=== PATIENT | male | born 1950 | race Caucasian/White ===

== ENCOUNTER 2021-05-21 05:37 | Inpatient (IN) ==
[2021-05-21] MEDS ORDERED: 0.9 % Sodium Chloride 1,000 ML IV ONE (05:50)
[2021-05-21 06:33] LABS: Basophils % 0.3 %; Hematocrit 45.3 % (37.5-50.1); Immature Granulocytes % 1.4 % (0-4); Lymphocytes # 1.2 K/mcL (0.6-4.6); Lymphocytes % 10.5 %; Mean Corpuscular HGB Conc 35.3 g/dL (31.6-35.5); Mean Corpuscular Hemoglobin 28.9 pg (28.0-33.3); Mean Corpuscular Volume 81.9 fL (83.0-100.0); Mean Platelet Volume 11.3 fL (9.4-12.4); Monocytes # 1.1 K/mcL (0.0-1.3); Monocytes % 9.5 %; Neutrophils # 9.1 K/mcL (1.6-8.9); Platelet Count 321 K/mcL (140-400); Red Blood Count 5.53 M/mcL (4.19-5.50); Red Cell Distribution Width 12.3 % (11.5-14.5); Segmented Neutrophils % 78.3 %; White Blood Count 11.6 K/mcL (4.3-11.1)
[2021-05-21 06:42] LABS: INR 1.5; Prothrombin Time 16.7 Seconds (9.4-12.1)
[2021-05-21 06:48] LABS: Alanine Aminotransferase 15 Units/L (7-52); Albumin 3.3 g/dL (3.5-5.7); Albumin/Globulin Ratio 0.9 (1.1-2.2); Alkaline Phosphatase 50 Units/L (34-104); Aspartate Amino Transferase 24 Units/L (13-39); BUN/Creatinine Ratio 23 (6-26); Bilirubin,Total 1.2 mg/dL (0.3-1.0); Blood Urea Nitrogen 25 mg/dL (8-23); Calcium 8.7 mg/dL (8.6-10.3); Carbon Dioxide 28 mEq/L (23-29); Chloride 89 mEq/L (98-107); Globulin 3.7 g/dL (2.4-3.5); Glucose 272 mg/dL (70-105); Magnesium 1.9 mg/dL (1.6-2.6); Osmolality,Calculated 282 (280-300); Phosphorous 2.7 mg/dL (2.7-4.5); Potassium 3.2 mEq/L (3.5-5.1); Sodium 129 mEq/L (136-145); eGFR For African Americans > 60 (> 60); eGFR For Non-African Americans > 60 (> 60)
[2021-05-21 06:49] LABS: Troponin I < 0.03 ng/mL (< 0.04)
[2021-05-21 06:49] LABS: ABG Base Excess 1 mEq/L (-2 to 3); ABG HCO3 24 mEq/L (21-27); ABG Oxygen Saturation 88 % (95-98); ABG PCO2 31 mmHg (35-45); ABG PH 7.48 pH Units (7.32-7.45); ABG PO2 49 mmHg (85-104); ABG TCO2 24 mEq/L (20-26)
[2021-05-21] MEDS ORDERED: cefTRIAXone 1,000 MG in 0.9 % Sodium Chloride Mini Bag 100 ML IVPB ONE (06:52)
[2021-05-21] MEDS ORDERED: 0.9 % Sodium Chloride 1,000 ML IVC SCH (07:30)
[2021-05-21] MEDS ORDERED: Azithromycin 500 MG in 0.9 % Sodium Chloride 250 ML IVPB ONE (08:00)
[2021-05-21 09:14] LABS: Bilirubin,Urine Negative (Negative); Blood,Urine Negative (Negative); Clarity,Urine Clear (Clear); Color,Urine Yellow (Yellow); Glucose,Urine (UA) 250 mg/dL (Normal); Ketones,Urine 15 mg/dL (Negative); Leukocyte Esterase,Urine Negative (Negative); Nitrite,Urine Negative (Negative); Protein,Urine 30 mg/dL (Neg-Trace); Specific Gravity,Urine 1.025 (1.010-1.025); Urobilinogen,Urine Normal (Normal)
[2021-05-21 09:20] LABS: Hyaline Casts,Urine Few per lpf (None Seen); WBC,Urine 0-3 per hpf (0-3)
[2021-05-21] MEDS ORDERED: Naloxone 0.4 MG/ML INJ IVP PRN (10:08)
[2021-05-21] MEDS ORDERED: Ondansetron 4 MG/2 ML VIAL IVP PRN (10:08)
[2021-05-21] MEDS ORDERED: Acetaminophen 325 MG TABLET PO PRN (10:08)
[2021-05-21] MEDS ORDERED: D5% in Water 1,000 ML IVC PRN (10:11)
[2021-05-21] MEDS ORDERED: Dextrose Gel 15 GM/37.5 ML TUBE PO PRN ×2 (10:11)
[2021-05-21] MEDS ORDERED: *HR* Dextrose 50 % in Water (Syg) 50 ML SYRINGE IVP PRN (10:11)
[2021-05-21] MEDS ORDERED: Remdesivir 200 MG in 0.9 % Sodium Chloride 100 ML IVPB ONE (10:13)
[2021-05-21] MEDS: Apixaban 5 MG TABLET PO SCH ×2 (12:53→23:50)
[2021-05-21] MEDS: DilTIAZem CD (24hr) 120 MG CAP.ER.24H PO SCH (12:53)
[2021-05-21] MEDS ORDERED: Haloperidol Lactate 5 MG/ML VIAL IVP ONE (13:52)
[2021-05-21] MEDS: Insulin LISPRO 300 UNITS/3 ML VIAL SUBQ SCH ×3 (14:24→23:50)
[2021-05-21] MEDS: 0.9 % Sodium Chloride 1,000 ML IVC SCH (15:04)
[2021-05-21] MEDS: *HR* LORazepam 2 MG/ML VIAL IVP PRN (16:46)
[2021-05-21] MEDS: Famotidine 20 MG/2 ML VIAL IVP SCH (16:46)
[2021-05-22] MEDS ORDERED: *HR* Enoxaparin 40 MG/0.4 ML SYRINGE SQ SCH (06:00)
[2021-05-22 07:54] LABS: Hematocrit 44.8 % (37.5-50.1); Hemoglobin 15.9 g/dL (12.9-16.9); Mean Corpuscular HGB Conc 35.5 g/dL (31.6-35.5); Mean Corpuscular Hemoglobin 29.3 pg (28.0-33.3); Mean Corpuscular Volume 82.5 fL (83.0-100.0); Mean Platelet Volume 10.9 fL (9.4-12.4); Platelet Count 346 K/mcL (140-400); Red Blood Count 5.43 M/mcL (4.19-5.50); Red Cell Distribution Width 12.8 % (11.5-14.5); White Blood Count 9.8 K/mcL (4.3-11.1)
[2021-05-22 08:06] LABS: Albumin 3.1 g/dL (3.5-5.7); Albumin/Globulin Ratio 0.8 (1.1-2.2); Bilirubin,Direct 0.2 mg/dL (0.0-0.2); Bilirubin,Indirect 0.5 mg/dL (0.0-1.0); Bilirubin,Total 0.7 mg/dL (0.3-1.0); Globulin 3.7 g/dL (2.4-3.5); Total Protein 6.8 g/dL (6.4-8.9)
[2021-05-22 08:07] LABS: Alanine Aminotransferase 15 Units/L (7-52); Albumin 3.1 g/dL (3.5-5.7); Albumin/Globulin Ratio 0.9 (1.1-2.2); Alkaline Phosphatase 45 Units/L (34-104); Aspartate Amino Transferase 17 Units/L (13-39); BUN/Creatinine Ratio 27 (6-26); Bilirubin,Total 0.7 mg/dL (0.3-1.0); Blood Urea Nitrogen 25 mg/dL (8-23); Calcium 8.9 mg/dL (8.6-10.3); Carbon Dioxide 27 mEq/L (23-29); Chloride 99 mEq/L (98-107); Globulin 3.6 g/dL (2.4-3.5); Glucose 302 mg/dL (70-105); Magnesium 2.2 mg/dL (1.6-2.6); Osmolality,Calculated 298 (280-300); Potassium 3.4 mEq/L (3.5-5.1); Sodium 136 mEq/L (136-145); Total Protein 6.7 g/dL (6.4-8.9); eGFR For African Americans > 60 (> 60); eGFR For Non-African Americans > 60 (> 60)
[2021-05-22] MEDS ORDERED: Levalbuterol Neb 1.25 MG/3 ML IH SCH (09:00)
[2021-05-22] MEDS: Levalbuterol 1 PUFF INHALER IH SCH ×4 (09:08→20:36)
[2021-05-22] MEDS: Ipratropium 1 PUFF INHALER IH SCH ×4 (09:08→20:36)
[2021-05-22] MEDS ORDERED: Potassium Chloride Elixir 20 MEQ/15 ML UDC PO ONE (09:37)
[2021-05-22] MEDS ORDERED: Furosemide 20 MG TABLET PO PRN (09:42)
[2021-05-22] MEDS ORDERED: Benzonatate 100 MG CAPSULE PO PRN (09:48)
[2021-05-22] MEDS: Apixaban 5 MG TABLET PO SCH ×2 (09:56→22:36)
[2021-05-22] MEDS: DilTIAZem CD (24hr) 120 MG CAP.ER.24H PO SCH (09:56)
[2021-05-22] MEDS: Dexamethasone Sodium Phos/PF 10 MG/ML VIAL IVP SCH (09:56)
[2021-05-22] MEDS: Famotidine 20 MG/2 ML VIAL IVP SCH ×2 (09:58→17:32)
[2021-05-22] MEDS: Insulin LISPRO 300 UNITS/3 ML VIAL SUBQ SCH ×4 (09:59→22:37)
[2021-05-22] MEDS: Furosemide 20 MG/2 ML VIAL IVP SCH (10:00)
[2021-05-22] MEDS: 0.9 % Sodium Chloride 1,000 ML IVC SCH (10:09)
[2021-05-22 10:45] LABS: Lymphocytes # 1.4 K/mcL (0.6-4.6); Monocytes # 0.8 K/mcL (0.0-1.3); Neutrophils # 7.5 K/mcL (1.6-8.9); Reactive Lymphocytes Present (Not Present)
[2021-05-22 10:47] LABS: Platelet Estimate Normal (Normal)
[2021-05-22] MEDS ORDERED: Azithromycin 500 MG in 0.9 % Sodium Chloride 250 ML IVPB SCH (11:00)
[2021-05-22] MEDS: Remdesivir 100 MG in 0.9 % Sodium Chloride 100 ML IVPB SCH (11:43)
[2021-05-23] MEDS: Levalbuterol 1 PUFF INHALER IH SCH ×6 (00:09→20:56)
[2021-05-23] MEDS: Ipratropium 1 PUFF INHALER IH SCH ×6 (00:09→20:55)
[2021-05-23] MEDS: Famotidine 20 MG/2 ML VIAL IVP SCH ×2 (05:37→19:07)
[2021-05-23] MEDS: *HR* LORazepam 2 MG/ML VIAL IVP PRN (05:37)
[2021-05-23 07:16] LABS: Basophils # 0.1 K/mcL (0.0-0.2); Basophils % 0.5 %; Hemoglobin 15.4 g/dL (12.9-16.9); Immature Granulocytes % 1.6 % (0-4); Lymphocytes # 1.2 K/mcL (0.6-4.6); Lymphocytes % 8.3 %; Mean Corpuscular Hemoglobin 28.9 pg (28.0-33.3); Mean Corpuscular Volume 82.7 fL (83.0-100.0); Mean Platelet Volume 10.9 fL (9.4-12.4); Monocytes # 1.1 K/mcL (0.0-1.3); Monocytes % 7.5 %; Platelet Count 398 K/mcL (140-400); Red Blood Count 5.32 M/mcL (4.19-5.50); Segmented Neutrophils % 82.1 %; White Blood Count 14.5 K/mcL (4.3-11.1)
[2021-05-23 07:19] LABS: Neutrophils # 11.9 K/mcL (1.6-8.9)
[2021-05-23 07:32] LABS: Albumin 3.1 g/dL (3.5-5.7); Albumin/Globulin Ratio 0.9 (1.1-2.2); Bilirubin,Direct 0.2 mg/dL (0.0-0.2); Bilirubin,Indirect 0.6 mg/dL (0.0-1.0); Bilirubin,Total 0.8 mg/dL (0.3-1.0); Globulin 3.5 g/dL (2.4-3.5); Total Protein 6.6 g/dL (6.4-8.9)
[2021-05-23] MEDS ORDERED: *HR* Dextrose 50 % in Water (Syg) 50 ML SYRINGE IVP PRN (09:05)
[2021-05-23] MEDS ORDERED: D5% in Water 1,000 ML IVC PRN (09:05)
[2021-05-23] MEDS ORDERED: Dextrose Gel 15 GM/37.5 ML TUBE PO PRN ×2 (09:05)
[2021-05-23 09:21] LABS: BUN/Creatinine Ratio 30 (6-26); Blood Urea Nitrogen 31 mg/dL (8-23); Calcium 8.9 mg/dL (8.6-10.3); Carbon Dioxide 23 mEq/L (23-29); Chloride 98 mEq/L (98-107); Glucose 388 mg/dL (70-105); Osmolality,Calculated 301 (280-300); Sodium 134 mEq/L (136-145); eGFR For African Americans > 60 (> 60); eGFR For Non-African Americans > 60 (> 60)
[2021-05-23 09:31] LABS: Platelet Estimate Normal (Normal)
[2021-05-23] MEDS ORDERED: cefTRIAXone 2,000 MG in Water for inj. (sterile) 20 ML IVP SCH (10:00)
[2021-05-23] MEDS: Apixaban 5 MG TABLET PO SCH ×2 (10:01→20:36)
[2021-05-23] MEDS: DilTIAZem CD (24hr) 120 MG CAP.ER.24H PO SCH (10:02)
[2021-05-23] MEDS: Furosemide 20 MG/2 ML VIAL IVP SCH (10:03)
[2021-05-23] MEDS: Dexamethasone Sodium Phos/PF 10 MG/ML VIAL IVP SCH (10:03)
[2021-05-23] MEDS: PARoxetine 20 MG TABLET PO SCH (10:03)
[2021-05-23] MEDS: Insulin LISPRO 300 UNITS/3 ML VIAL SUBQ SCH ×6 (10:04→23:50)
[2021-05-23] MEDS: QUEtiapine Fumarate 25 MG TABLET PO SCH (10:05)
[2021-05-23] MEDS ORDERED: *HR* Adenosine 6 MG/2 ML SYRINGE IVP PRN (10:45)
[2021-05-23] MEDS ORDERED: *HR* Metoprolol 5 MG/5 ML VIAL IVP ONE ×2 (10:46→12:27)
[2021-05-23] MEDS: Remdesivir 100 MG in 0.9 % Sodium Chloride 100 ML IVPB SCH (11:42)
[2021-05-23] MEDS ORDERED: Dexamethasone Sodium Phos/PF 10 MG/ML VIAL IVP ONE (12:40)
[2021-05-23] MEDS ORDERED: Haloperidol Lactate 5 MG/ML VIAL IM PRN (17:31)
[2021-05-23] MEDS ORDERED: *HR* Metoprolol 5 MG/5 ML VIAL IVP PRN (17:31)
[2021-05-23] MEDS ORDERED: Doxycycline 100 MG in 0.9 % Sodium Chloride Mini Bag 100 ML IVPB SCH (18:00)
[2021-05-23] MEDS ORDERED: QUEtiapine Fumarate 25 MG TABLET PO SCH (21:00)
[2021-05-24] MEDS: Levalbuterol 1 PUFF INHALER IH SCH ×6 (00:27→16:25)
[2021-05-24] MEDS: Ipratropium 1 PUFF INHALER IH SCH ×6 (00:27→16:26)
[2021-05-24] MEDS: Famotidine 20 MG/2 ML VIAL IVP SCH (06:39)
[2021-05-24 06:54] LABS: Basophils % 0.3 %; Hematocrit 46.3 % (37.5-50.1); Hemoglobin 15.8 g/dL (12.9-16.9); Immature Granulocytes % 1.5 % (0-4); Lymphocytes # 1.1 K/mcL (0.6-4.6); Lymphocytes % 7.3 %; Mean Corpuscular HGB Conc 34.1 g/dL (31.6-35.5); Mean Corpuscular Hemoglobin 28.7 pg (28.0-33.3); Mean Platelet Volume 10.9 fL (9.4-12.4); Monocytes # 0.9 K/mcL (0.0-1.3); Monocytes % 6.2 %; Neutrophils # 12.2 K/mcL (1.6-8.9); Platelet Count 401 K/mcL (140-400); Red Blood Count 5.51 M/mcL (4.19-5.50); Red Cell Distribution Width 13.2 % (11.5-14.5); Segmented Neutrophils % 84.7 %; White Blood Count 14.4 K/mcL (4.3-11.1)
[2021-05-24 07:09] LABS: Alanine Aminotransferase 17 Units/L (7-52); Albumin 3.1 g/dL (3.5-5.7); Albumin/Globulin Ratio 0.9 (1.1-2.2); Alkaline Phosphatase 51 Units/L (34-104); Aspartate Amino Transferase 16 Units/L (13-39); BUN/Creatinine Ratio 34 (6-26); Bilirubin,Total 0.7 mg/dL (0.3-1.0); Blood Urea Nitrogen 33 mg/dL (8-23); Calcium 8.9 mg/dL (8.6-10.3); Carbon Dioxide 26 mEq/L (23-29); Chloride 101 mEq/L (98-107); Globulin 3.5 g/dL (2.4-3.5); Glucose 370 mg/dL (70-105); Magnesium 2.4 mg/dL (1.6-2.6); Osmolality,Calculated 310 (280-300); Sodium 139 mEq/L (136-145); Total Protein 6.6 g/dL (6.4-8.9); eGFR For African Americans > 60 (> 60); eGFR For Non-African Americans > 60 (> 60)
[2021-05-24 08:07] LABS: Albumin 3.1 g/dL (3.5-5.7); Albumin/Globulin Ratio 0.9 (1.1-2.2); Bilirubin,Direct 0.1 mg/dL (0.0-0.2); Bilirubin,Indirect 0.6 mg/dL (0.0-1.0); Bilirubin,Total 0.7 mg/dL (0.3-1.0); Globulin 3.5 g/dL (2.4-3.5); Total Protein 6.6 g/dL (6.4-8.9)
[2021-05-24] MEDS: DilTIAZem CD (24hr) 120 MG CAP.ER.24H PO SCH (10:27)
[2021-05-24] MEDS: PARoxetine 20 MG TABLET PO SCH (10:27)
[2021-05-24] MEDS: Apixaban 5 MG TABLET PO SCH (10:28)
[2021-05-24] MEDS: QUEtiapine Fumarate 25 MG TABLET PO SCH (10:28)
[2021-05-24] MEDS: Dexamethasone Sodium Phos/PF 10 MG/ML VIAL IVP SCH (10:28)
[2021-05-24] MEDS: Furosemide 20 MG/2 ML VIAL IVP SCH (10:28)
[2021-05-24 12:34] LABS: C-Reactive Protein 18 mg/L (Less than 10)
[2021-05-24] MEDS: Insulin LISPRO 300 UNITS/3 ML VIAL SUBQ SCH (12:57)
[2021-05-24 12:58] VITALS: BP 131/77; PULSE 84; TEMP 98.9
[2021-05-24] MEDS: Remdesivir 100 MG in 0.9 % Sodium Chloride 100 ML IVPB SCH (13:05)
[2021-05-24 18:29] VITALS: RESP 20; O2SAT 95
== END 2021-05-24 17:36 | disposition hospice, home (50) | DRG 177 ==
LOC: INPPIK 05:37 → EMEROOPIK 05:37 → INPPIK 11:53
PROVIDERS: ADMIT Internal Medicine; ATTEND Internal Medicine

== ENCOUNTER 2021-05-24 12:45 | Inpatient (IN) ==
[2021-05-24] MEDS ORDERED: *HR* LORazepam 1 MG TABLET PO PRN (14:34)
[2021-05-24] MEDS ORDERED: Haloperidol Oral Conc 10 MG/5 ML UDC PO PRN (14:34)
[2021-05-24] MEDS ORDERED: Ondansetron ODT 4 MG TAB.RAPDIS SL PRN (14:34)
[2021-05-24] MEDS: Scopolamine Patch 1.5 MG PATCH.TD72 TD SCH (18:48)
[2021-05-25] MEDS: Scopolamine Patch 1.5 MG PATCH.TD72 TD SCH (03:02)
[2021-05-25] MEDS: *HR* LORazepam Oral Conc 2 MG/ML SL PRN ×4 (03:03→22:47)
[2021-05-25] MEDS: Insulin LISPRO 300 UNITS/3 ML VIAL SUBQ SCH ×4 (09:07→23:00)
[2021-05-25] MEDS: Morphine Sulfate Oral CONC 10 MG/0.5 ML ORAL.SYG PO PRN ×2 (11:58→18:14)
[2021-05-25] MEDS ORDERED: Morphine Sulfate Oral CONC 10 MG/0.5 ML ORAL.SYG SL ONE (12:42)
[2021-05-25] MEDS ORDERED: *HR* HYDROmorphone 2 MG TABLET PO PRN (13:09)
[2021-05-25] MEDS ORDERED: Morphine Sulfate 2 MG/ML SYRINGE IVP PRN (13:09)
[2021-05-25] MEDS: *HR* HYDROmorphone (PF) 1 MG/ML SYRINGE IVP PRN (22:49)
[2021-05-26] MEDS: *HR* HYDROmorphone (PF) 1 MG/ML SYRINGE IVP PRN ×2 (03:39→10:46)
[2021-05-26] MEDS: Insulin LISPRO 300 UNITS/3 ML VIAL SUBQ SCH ×3 (03:44→12:05)
[2021-05-26 07:42] VITALS: BP 154/99; PULSE 173; RESP 32; TEMP 102.2; O2SAT 86
[2021-05-26] MEDS ORDERED: Insulin LISPRO 300 UNITS/3 ML VIAL SUBQ STA (07:47)
== END 2021-05-26 18:42 | disposition expired | DRG 177 ==
LOC: INPPIK 18:06
PROVIDERS: ADMIT Family Medicine; ATTEND Family Medicine